=== PATIENT | female | born 1960 | race Caucasian/White ===

== ENCOUNTER 2017-06-10 10:20 | Inpatient (IN) | payer BC ==
[2017-06-10] MEDS ORDERED: ACETAMINOPHEN TAB 325 MG TAB PO STA (10:47)
--- NOTE | 2017-06-10 10:51 | ED ---
General Adult HPI - General Chief complaint: Fever Stated complaint: breast infection Time Seen by Provider: 06/10/17 10:34 Source: patient, RN notes reviewed Mode of arrival: ambulatory Limitations: no limitations - History of Present Illness Initial comments: Patient is a pleasant 57-year-old female presenting to the emergency department for left breast infection. Patient does have a history of cancer and lumpectomy. Patient has been having fevers and tenderness of the left breast. Past 4 days. Patient has been on Bactrim for 3 days however symptoms continue to worsen. Patient states discomfort is only mild. No history of similar symptoms previously. No other area of involvement. - Related Data Home Medications Medication Instructions Recorded Confirmed Atorvastatin [Lipitor] 20 mg PO HS 06/10/17 06/10/17 Calcium Carb/Vitamin D3/Vit K1 1 tab PO DAILY 06/10/17 06/10/17 [Citracal Soft Chew] Levothyroxine Sodium [Tirosint] 125 mcg PO DAILY 06/10/17 06/10/17 Multivitamins, Thera [Multivitamin 1 tab PO DAILY 06/10/17 06/10/17 (formulary)] Tamoxifen Citrate 20 mg PO DAILY 06/10/17 06/10/17 Allergies Allergy/AdvReac Type Severity Reaction Status Date / Time No Known Allergies Allergy Verified 06/10/17 11:27 Review of Systems ROS Statement: Those systems with pertinent positive or pertinent negative responses have been documented in the HPI. ROS Other: All systems not noted in ROS Statement are negative. Constitutional: Reports: fever Eyes: Denies: eye pain ENT: Denies: ear pain Respiratory: Denies: cough Cardiovascular: Denies: chest pain Endocrine: Denies: fatigue Gastrointestinal: Denies: abdominal pain Genitourinary: Denies: urgency Musculoskeletal: Denies: back pain Skin: Denies: rash Neurological: Denies: weakness Past Medical History Past Medical History: Cancer, Hyperlipidemia Additional Past Medical History / Comment(s): left sided breast cancer and thryroid cancer History of Any Multi-Drug Resistant Organisms: None Reported Past Surgical History: Breast Surgery, Section, Uterine Ablation Additional Past Surgical History / Comment(s): left sided lumpectomy and thryroidectomy 2016, open reduction of left tibula in 2013 Past Psychological History: No Psychological Hx Reported Smoking Status: Former smoker Past Alcohol Use History: Occasional Past Drug Use History: None Reported General Exam Limitations: no limitations General appearance: alert, in no apparent distress Head exam: Present: atraumatic Eye exam: Present: normal appearance Neck exam: Present: normal inspection Respiratory exam: Present: normal lung sounds bilaterally Cardiovascular Exam: Present: regular rate, normal rhythm Expanded 1 - erythema Extremities exam: Present: normal inspection Neurological exam: Present: alert Psychiatric exam: Present: normal affect, normal mood Skin exam: Present: erythema (Left entire breast with some extension to the upper chest and lateral chest wall. Mild tenderness.) Course Vital Signs 06/10/17 06/10/17 06/10/17 10:28 12:17 13:05 Temperature 99.8 F H 98.3 F 98.7 F Pulse Rate 105 H 92 90 Respiratory 16 18 19 Rate Blood Pressure 178/94 128/71 136/78 O2 Sat by Pulse 99 100 100 Oximetry - Reevaluation(s) Reevaluation #1: 06/10/17 11:32 Patient does meet sepsis criteria diagnosed at 11:32 AM. Blood cultures and lactic acid and antibiotics have been ordered. EKG Findings - EKG Comments: EKG Findings:: Normal sinus rhythm 93. [place] 122. QRS 88. QT 360. QTC 47. Right axis. Normal QRS. No acute ST change. Medical Decision Making - Medical Decision Making Patient reexamined and updated on results and plan. Case was discussed in detail with practitioner Gloria, who will admit for Dr. Ford, covering for Dr. Wang. - Lab Data Result diagrams: 06/10/17 11:09 06/10/17 11:09 Lab Results 06/10/17 06/10/17 06/10/17 Range/Units 10:45 11:09 11:09 WBC 3.1 L (3.8-10.6) k/uL RBC 4.22 (3.80-5.40) m/uL Hgb 13.6 (11.4-16.0) gm/dL Hct 38.9 (34.0-46.0) % MCV 92.2 (80.0-100.0) fL MCH 32.3 (25.0-35.0) pg MCHC 35.0 (31.0-37.0) g/dL RDW 12.2 (11.5-15.5) % Plt Count 203 (150-450) k/uL Neutrophils % (Manual) 79 % Lymphocytes % (Manual) 14 % Monocytes % (Manual) 7 % Neutrophils # (Manual) 2.45 (1.3-7.7) k/uL Lymphocytes # (Manual) 0.43 L (1.0-4.8) k/uL Monocytes # (Manual) 0.22 (0-1.0) k/uL Nucleated RBCs 0 (0-0) /100 WBC PT (9.0-12.0) sec INR (<1.2) APTT (22.0-30.0) sec Sodium 140 (137-145) mmol/L Potassium 4.3 (3.5-5.1) mmol/L Chloride 104 (98-107) mmol/L Carbon Dioxide 25 (22-30) mmol/L Anion Gap 11 mmol/L BUN 6 L (7-17) mg/dL Creatinine 0.70 (0.52-1.04) mg/dL Est GFR (MDRD) Af Amer >60 (>60 ml/min/1.73 sqM) Est GFR (MDRD) Non-Af >60 (>60 ml/min/1.73 sqM) Glucose 103 H (74-99) mg/dL Plasma Lactic Acid Jose (0.7-2.0) mmol/L Calcium 10.1 (8.4-10.2) mg/dL Total Bilirubin 0.5 (0.2-1.3) mg/dL AST 97 H (14-36) U/L ALT 113 H (9-52) U/L Alkaline Phosphatase 125 (38-126) U/L Total Protein 6.8 (6.3-8.2) g/dL Albumin 4.2 (3.5-5.0) g/dL Urine Color Colorless Urine Appearance Clear (Clear) Urine pH 6.5 (5.0-8.0) Ur Specific Lloyd 1.002 (1.001-1.035) Urine Protein Negative (Negative) Urine Glucose (UA) Negative (Negative) Urine Ketones Negative (Negative) Urine Blood Negative (Negative) Urine Nitrite Negative (Negative) Urine Bilirubin Negative (Negative) Urine Urobilinogen <2.0 (<2.0) mg/dL Ur Leukocyte Esterase Trace H (Negative) Urine WBC 1 (0-5) /hpf 06/10/17 06/10/17 Range/Units 11:09 11:09 WBC (3.8-10.6) k/uL RBC (3.80-5.40) m/uL Hgb (11.4-16.0) gm/dL Hct (34.0-46.0) % MCV (80.0-100.0) fL MCH (25.0-35.0) pg MCHC (31.0-37.0) g/dL RDW (11.5-15.5) % Plt Count (150-450) k/uL Neutrophils % (Manual) % Lymphocytes % (Manual) % Monocytes % (Manual) % Neutrophils # (Manual) (1.3-7.7) k/uL Lymphocytes # (Manual) (1.0-4.8) k/uL Monocytes # (Manual) (0-1.0) k/uL Nucleated RBCs (0-0) /100 WBC PT 9.6 (9.0-12.0) sec INR 0.9 (<1.2) APTT 23.6 (22.0-30.0) sec Sodium (137-145) mmol/L Potassium (3.5-5.1) mmol/L Chloride (98-107) mmol/L Carbon Dioxide (22-30) mmol/L Anion Gap mmol/L BUN (7-17) mg/dL Creatinine (0.52-1.04) mg/dL Est GFR (MDRD) Af Amer (>60 ml/min/1.73 sqM) Est GFR (MDRD) Non-Af (>60 ml/min/1.73 sqM) Glucose (74-99) mg/dL Plasma Lactic Acid Jose 1.5 (0.7-2.0) mmol/L Calcium (8.4-10.2) mg/dL Total Bilirubin (0.2-1.3) mg/dL AST (14-36) U/L ALT (9-52) U/L Alkaline Phosphatase (38-126) U/L Total Protein (6.3-8.2) g/dL Albumin (3.5-5.0) g/dL Urine Color Urine Appearance (Clear) Urine pH (5.0-8.0) Ur Specific Lloyd (1.001-1.035) Urine Protein (Negative) Urine Glucose (UA) (Negative) Urine Ketones (Negative) Urine Blood (Negative) Urine Nitrite (Negative) Urine Bilirubin (Negative) Urine Urobilinogen (<2.0) mg/dL Ur Leukocyte Esterase (Negative) Urine WBC (0-5) /hpf Critical Care Time Critical Care Time: Yes Total Critical Care Time: 32 Disposition Clinical Impression: Cellulitis of left breast, Sepsis Disposition: ADMITTED IP TO THIS HOSP Condition: Serious Referrals: Kathrine Sarah MD [Primary Care Provider] - 1-2 days Decision Time: 13:39
[2017-06-10] MEDS: SODIUM CHLORIDE 0.9% 500 ML IV SCH ×2 (11:05→11:46)
[2017-06-10 11:17] LABS: Appearance,Urine Clear (Clear); Bilirubin,Urine Negative (Negative); Glucose,Urine (UA) Negative (Negative); Ketones,Urine Negative (Negative); Leukocyte Esterase,Urine Trace (Negative); Nitrite,Urine Negative (Negative); PH, Urine 6.5 (5.0-8.0); Particle Count 361; Protein,Urine Negative (Negative); Specific Gravity,Urine 1.002 (1.001-1.035); UA Billing (MACRO vs. MICRO) MICRO; Urobilinogen,Urine <2.0 mg/dL (<2.0); WBC,Urine 1 /hpf (0-5)
[2017-06-10 11:24] LABS: Aty Lym Flag Slight; CH 31.9; CHCM 34.8; HCT 38.9 % (34.0-46.0); HDW 2.52; HGB 13.6 gm/dL (11.4-16.0); MCH 32.3 pg (25.0-35.0); MCV 92.2 fL (80.0-100.0); Mean Platelet Volume 6.5; RBC 4.22 m/uL (3.80-5.40); RDW 12.2 % (11.5-15.5); WBC 3.1 k/uL (3.8-10.6); WBC (Perox) 3.21
[2017-06-10 11:31] LABS: INR 0.9 (<1.2); Partial Thromboplastin Time 23.6 sec (22.0-30.0); Prothrombin Time 9.6 sec (9.0-12.0)
[2017-06-10] MEDS ORDERED: LEVOFLOXACIN 750MG-D5W PMX 750 MG in DEXTROSE/WATER 1 150ML.BAG IVPB STA (11:31)
[2017-06-10] MEDS ORDERED: IV VANCOMYCIN PER PHARMACY 1 EACH MISC MISCELLANE PRN (11:31)
[2017-06-10 11:36] LABS: ALT 113 U/L (9-52); AST 97 U/L (14-36); Alkaline Phosphatase 125 U/L (38-126); Anion Gap 11 mmol/L; Blood Urea Nitrogen 6 mg/dL (7-17); Calcium 10.1 mg/dL (8.4-10.2); Carbon Dioxide 25 mmol/L (22-30); Chloride 104 mmol/L (98-107); Glucose 103 mg/dL (74-99); Non-African American GFR(MDRD) >60 (>60 ml/min/1.73 sqM); Potassium 4.3 mmol/L (3.5-5.1); Sodium 140 mmol/L (137-145); Total Bilirubin 0.5 mg/dL (0.2-1.3); Total Protein 6.8 g/dL (6.3-8.2)
[2017-06-10] MEDS ORDERED: LEVOFLOXACIN 750MG-D5W PMX 750 MG in DEXTROSE/WATER 1 150ML.BAG IVPB SCH (11:45)
[2017-06-10 11:46] LABS: Add Differential Manual Differential
[2017-06-10 11:50] LABS: Nucleated Red Blood Cells 0 /100 WBC (0-0); Total Cells Counted 100
--- NOTE | 2017-06-10 11:52 | XR ---
EXAMINATION TYPE: XR chest 2V DATE OF EXAM: 06/10/2017 COMPARISON: None TECHNIQUE: PA and lateral views submitted. HISTORY: Fever FINDINGS: The lungs are clear and there is no pneumothorax, pleural effusion, or focal pneumonia. Postsurgica l change overlying the left axilla. Apical pleural thickening. Linear density in the right midlung la terally. Surgical change overlying the left breast. Arthropathy of the shoulders. IMPRESSION: 1. Subsegmental linear changes lateral margin right upper lobe most likely related atelectasis or sca r. Correlate clinically.
[2017-06-10] MEDS ORDERED: VANCOMYCIN 1,250 MG in SODIUM CHLORIDE 0.9% 250 ML IVPB ONE (12:30)
[2017-06-10] MEDS ORDERED: ACETAMINOPHEN TAB 325 MG TAB PO PRN (13:39)
[2017-06-10] MEDS ORDERED: NALOXONE 0.4 MG/ML 1 ML VIAL IV PRN (13:39)
[2017-06-10] MEDS: SODIUM CHLORIDE 0.9% 1,000 ML IV SCH (13:51)
[2017-06-10] MEDS: traMADol 50 MG TAB PO PRN ×2 (15:40→21:58)
[2017-06-10] MEDS: PANTOPRAZOLE 40 MG/10 ML VIAL IVP SCH (17:43)
[2017-06-10] MEDS: VANCOMYCIN 1,250 MG in SODIUM CHLORIDE 0.9% 250 ML IVPB SCH (21:57)
[2017-06-11] MEDS: SODIUM CHLORIDE 0.9% 1,000 ML IV SCH ×2 (00:19→03:59)
[2017-06-11] MEDS: traMADol 50 MG TAB PO PRN ×4 (03:54→22:44)
[2017-06-11] MEDS: VANCOMYCIN 1,250 MG in SODIUM CHLORIDE 0.9% 250 ML IVPB SCH (05:37)
[2017-06-11 05:52] LABS: Anion Gap 4 mmol/L; Blood Urea Nitrogen 5 mg/dL (7-17); Calcium 8.6 mg/dL (8.4-10.2); Carbon Dioxide 25 mmol/L (22-30); Chloride 107 mmol/L (98-107); Glucose 88 mg/dL (74-99); Non-African American GFR(MDRD) >60 (>60 ml/min/1.73 sqM); Potassium 3.8 mmol/L (3.5-5.1); Sodium 136 mmol/L (137-145)
[2017-06-11 05:56] LABS: Aty Lym Flag Slight; CH 32.8; CHCM 34.9; HCT 33.1 % (34.0-46.0); HGB 11.2 gm/dL (11.4-16.0); MCV 94.4 fL (80.0-100.0); RBC 3.51 m/uL (3.80-5.40); RDW 13.1 % (11.5-15.5); WBC 3.2 k/uL (3.8-10.6); WBC (Perox) 3.32
[2017-06-11 06:33] LABS: Add Differential Manual Differential
[2017-06-11 06:35] LABS: Manual Review Performed; Nucleated Red Blood Cells 0 /100 WBC (0-0); Total Cells Counted 100
[2017-06-11] MEDS: TAMOXIFEN 10 MG TAB PO SCH (08:30)
[2017-06-11] MEDS: CALCIUM CARB-VIT D 500MG-200UN 1 EACH TAB PO SCH (08:30)
[2017-06-11] MEDS: PANTOPRAZOLE 40 MG/10 ML VIAL IVP SCH (08:31)
--- NOTE | 2017-06-11 11:27 | USB ---
EXAMINATION TYPE: US breast complete LT DATE OF EXAM: 06/11/2017 COMPARISON: Left breast ultrasound October 15, 2015 CLINICAL HISTORY: abscess. Diagnosed left breast cancer October 2015 with with new redness over chest including left breast Technique: Whole left breast ultrasound including evaluation of subareolar and axillary region is per formed. Findings: Subcutaneous edema is present throughout best seen at 7 and 8:00 position and subareolar re gion. No well-formed fluid collection or abscess is present. IMPRESSION: As above BI-RADS 2 benign findings. Recommendation: Manage clinically. Return to routine follow-up.
[2017-06-11] MEDS: ceFAZolin 2 GM in SODIUM CHLORIDE 0.9% 100 ML IVPB SCH ×2 (11:40→16:55)
[2017-06-11] MEDS: MULTIVITAMINS, THERA 1 EACH TAB PO SCH (11:41)
[2017-06-11] MEDS ORDERED: LEVOFLOXACIN 750MG-D5W PMX 750 MG in DEXTROSE/WATER 1 150ML.BAG IVPB SCH (12:00)
[2017-06-11 12:02] LABS: Bilirubin, Delta 0.1 mg/dL (0.0-0.2); Total Bilirubin 0.3 mg/dL (0.2-1.3); Total Protein 5.1 g/dL (6.3-8.2)
[2017-06-11] MEDS ORDERED: HYDROcodone/APAP 5-325MG 1 EACH TAB PO PRN (14:51)
[2017-06-11] MEDS ORDERED: ALPRAZolam 0.25 MG TAB PO PRN (14:51)
[2017-06-11] MEDS ORDERED: TEMAZEPAM 15 MG CAP PO PRN (14:51)
[2017-06-11] MEDS: HEPARIN SODIUM,PORCINE 5,000 UNIT/ML 1 ML VIAL SQ SCH (20:04)
--- NOTE | 2017-06-11 21:22 | PN ---
PROGRESS NOTE DATE OF SERVICE: 06/11/2017 To Whom it May Concern: This 57-year-old woman was admitted with left breast cellulitis and probably abscess. The patient is on IV antibiotics. The patient needs to be hospitalized for continued management of this acute medical/surgical issue. Please contact me for any further information. Please refer to the ER notes and History and Physical and other notes for further information. MMODL / IJN: [id number] /
--- NOTE | 2017-06-11 22:31 | HP ---
HISTORY AND PHYSICAL DATE OF ADMISSION: 06/10/17 CHIEF COMPLAINT: Left-sided breast infection. HISTORY OF PRESENT ILLNESS: This 57-year-old woman with a past medical history of multiple medical problems, including history of breast cancer with lumpectomy and radiation at [facility], thyroid cancer with thyroidectomy, history hyperlipidemia being followed by Dr. Sarah in the outpatient setting is complaining of left sided breast redness which the patient noted after a playing a day of golf. The patient is taking outpatient Bactrim. Because of lack of improvement the patient came to [facility] and was admitted to the hospital further evaluation and treatment. There is no history of any fever, rigors or chills. No seizures have been reported. No history of discharge per nipple. Infectious disease evaluation in progress. The patient started on broad-spectrum IV antibiotics. PAST MEDICAL HISTORY: History of breast cancer. History of lumpectomy, hyperlipidemia, history radiation, history of breast surgery. MEDICATIONS: Prior to admission: 1. Citracal 1 p.o. daily. 2. Tamoxifen 25 mg p.o. daily. 4. Levothyroxine 25 mcg. 5. Lipitor 10 mg q.h.s. ALLERGIES: None. FAMILY HISTORY: History of cancer in the family. SOCIAL HISTORY: Previous history of smoker. Occasional alcohol intake. REVIEW OF SYSTEMS: EENT no diminished vision. No diminished hearing. Cardio system: No angina or palpitations. Respiratory system: No cough, hemoptysis. GI: No nausea, vomiting. : No dysuria. Neuro system: No numbness weakness. Allergy/Immunology: No asthma or hayfever. Musculoskeletal System: As mentioned earlier. Hematology-Oncology: As mentioned earlier. Endocrine: No history of diabetes, hypothyroidism. Constitutional: As mentioned earlier. Dermatology: As mentioned earlier. Rheumatology: Negative. Psychiatry: Negative. PHYSICAL EXAMINATION: The patient is alert and oriented times three. Pulse is 70, blood pressure 124/ 73, respirations 16, temperature 98.2, pulse ox 98% on room air. HEENT: Conjunctivae normal. Oral mucosa moist. Neck is no JVD. No carotid bruit. No lymph node enlargement. No carotid bruit. No thyroid enlargement. Cardiovascular system : S1, S2 normal. No S3, no S4. Respiratory: Breath sounds are diminished at the bases. No rhonchi and no crackles. No bronchial breath sounds. ABDOMEN: Soft, nontender. No hepatosplenomegaly. LEGS: no edema. No swelling. Nervous system: Higher functions as mentioned earlier. Cranial nerves 2 thru 12 grossly intact. Moves all four limbs. No focal motor deficit. Lymphatic: No lymph nodes palpable in the neck, axillae or groin. SKIN: Normal except the skin over the left side of the chest, otherwise no active deforming arthropathy. Examination of the breast on palpation minimal tenderness and induration otherwise no definite masses palpated. Significant diffuse redness which is marked on the left chest also present. LAB: Investigations are WBC ntd_, hemoglobin 11.2, sodium 136. ASSESSMENT: 1. Acute left breast cellulitis with pain and fever. 2. Mild leukopenia. 3. Anemia normocytic. 4. Increased AST/ALT of mild hepatitis of undetermined significance. 5. History of breast cancer, lumpectomy, radiation. 6. Hyperlipidemia. 7. Hypothyroidism. 8. History of thyroid cancer and thyroidectomy. 9. Remote history of nicotine dependence. RECOMMENDATIONS AND DISCUSSION: In this 57-year-old woman presenting with multiple complex medical issues, at this time, monitor patient closely. Continue current medications, continue symptomatic treatment, antibiotics have been changed to cefazolin. We will follow the patient closely. Infectious Disease. Symptomatic treatment will be provided. Resume the home medications. Repeat labs. DVT prophylaxis. Guarded prognosis because of multiple complex medical issues. Further recommendations to follow. A copy of dictation being forwarded to Dr. Sarah who is the primary care physician. MMPAULAL / JAMESN: [id number] / MTDD
[2017-06-12] MEDS: ceFAZolin 2 GM in SODIUM CHLORIDE 0.9% 100 ML IVPB SCH ×3 (00:22→15:22)
[2017-06-12] MEDS: SODIUM CHLORIDE 0.9% 1,000 ML IV SCH ×2 (05:01→05:53)
--- NOTE | 2017-06-12 05:25 | CONS ---
CONSULTATION DATE OF SERVICE: 06/11/2017 REASON FOR CONSULTATION: Left breast cellulitis. HISTORY OF PRESENT ILLNESS: The patient is a 57-year-old female with past medical history significant for left breast cancer. The patient is status post lumpectomy and chemotherapy and as well as radiation and she finished in February of 2016; currently on oral tamoxifen. The patient says she was doing well. However over the weekend, she did have golf and may have played harder. The next morning, noticed to have some erythema around the breast area that has gradually progressed within 48 hours. The patient did went to the urgent care where the patient was evaluated by the physician and has been started on oral Bactrim DS. Patient did take about 4 doses of Bactrim and did not have significant improvement and breast area became more swollen, red and painful. The pain describing it to be sharp 5 to 6 out of 10 and no radiation. There is no skin breakdown. There is no drainage. The patient did have some chills and on arrival to the ER the patient had a low-grade fever of 99.8. The patient's white count was 3.1. She has been diagnosed with cellulitis where the patient was started on vancomycin and Levaquin and ID was consulted for further recommendation regarding antibiotic therapy. REVIEW OF SYSTEMS: CONSTITUTIONAL: Positive for weakness and chills. EYES: No complaint. ENT: No complaint. RESPIRATORY: No complaint. CARDIOVASCULAR: No complaint. GENITOURINARY: No complaint. GASTROINTESTINAL: No complaint. MUSCULOSKELETAL: No complaint. INTEGUMENTARY: As per HPI. PSYCHOLOGICAL: No complaint. ENDOCRINE: No complaint. NEUROLOGICAL: No complaint. PAST MEDICAL HISTORY: Left breast cancer, thyroid cancer, hyperlipidemia. PAST SURGICAL HISTORY: Left breast lumpectomy, , uterine ablation, thyroidectomy. SOCIAL HISTORY: Remote history of smoking. No drinking or drug use. 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 ALLERGIES: No known drug allergies. FAMILY HISTORY: No pertinent findings noticed. MEDICATIONS: Medications include the patient is currently on Tylenol, [place], Xanax, Os-Jony with D, heparin, Theragran, Narcan, Protonix, Tamoxifen, Levaquin and vancomycin pharmacy to dose. PHYSICAL EXAMINATION: On examination, blood pressure 124/73 with a pulse of 70, temperature 98.1. She is 98% on room air. General description is a middle aged female up in the bed in no distress. No tachypnea or accessory muscles of respiration use. HEENT EXAMINATION: No pallor or scleral icterus. Oral mucous membrane is dry. NECK: Trachea central. No thyromegaly. LUNGS: Unlabored breathing. Clear to auscultation anteriorly. No wheeze or crackle. HEART: S1, S2. Regular rate and rhythm. ABDOMEN: Soft, no tenderness. No guarding or rigidity. EXTREMITIES: No edema of feet. SKIN EXAMINATION: No rash or mass palpable. Examination of the left breast reveals with extensive redness which is diffuse in nature, warm to touch. There was no evidence of any induration or fluctuation on the breast to palpation. No drainage. NEUROLOGICAL: The patient is awake, alert, oriented x3. Mood and affect normal. LABS: Hemoglobin 11.2, white count of 3.2. BUN of 5 and creatinine 0.80. Urine has been negative. Blood culture obtained and currently pending. DIAGNOSTIC IMPRESSION: Patient with acute left breast cellulitis with a previous history of breast cancer in the same region, status post lumpectomy, radiation and chemotherapy. Patient with diffuse swelling and redness more likely a streptococcal cellulitis, clinically doubt methicillin-resistant Staphylococcus aureus infection or a gram-negative infection. PLAN: 1. We will obtain ultrasound of the breast to make sure there is no evidence of any abscess that may need to be drained. 2. We will discontinue Levaquin and vancomycin. 3. We will start the patient on cefazolin 2 grams q.8 hour as the patient did have overall improvement on cefazolin, for oral Keflex for the outpatient. This has been discussed in detail with the patient and agree with the plan. MMODL / IJN: [id number] /
[2017-06-12] MEDS: traMADol 50 MG TAB PO PRN ×3 (05:50→19:30)
[2017-06-12 06:54] LABS: Aty Lym Flag Slight; CH 31.3; CHCM 33.5; HCT 34.4 % (34.0-46.0); HGB 11.8 gm/dL (11.4-16.0); MCH 32.1 pg (25.0-35.0); MCHC 34.3 g/dL (31.0-37.0); MCV 93.7 fL (80.0-100.0); Mean Platelet Volume 6.7; RBC 3.67 m/uL (3.80-5.40); RDW 12.3 % (11.5-15.5); WBC 3.4 k/uL (3.8-10.6); WBC (Perox) 3.46
[2017-06-12 07:07] LABS: ALT 133 U/L (9-52); AST 129 U/L (14-36); Alkaline Phosphatase 77 U/L (38-126); Anion Gap 6 mmol/L; Blood Urea Nitrogen 6 mg/dL (7-17); Calcium 9.2 mg/dL (8.4-10.2); Carbon Dioxide 30 mmol/L (22-30); Chloride 103 mmol/L (98-107); Glucose 88 mg/dL (74-99); Non-African American GFR(MDRD) >60 (>60 ml/min/1.73 sqM); Sodium 139 mmol/L (137-145); Total Bilirubin 0.4 mg/dL (0.2-1.3); Total Protein 5.6 g/dL (6.3-8.2)
[2017-06-12 08:29] LABS: Add Differential Manual Differential
[2017-06-12 08:31] LABS: Nucleated Red Blood Cells 0 /100 WBC (0-0); Polychromasia Present; Total Cells Counted 100
[2017-06-12] MEDS: PANTOPRAZOLE 40 MG TABLET PO SCH (08:46)
[2017-06-12] MEDS: CALCIUM CARB-VIT D 500MG-200UN 1 EACH TAB PO SCH (08:46)
[2017-06-12] MEDS: TAMOXIFEN 10 MG TAB PO SCH (08:46)
[2017-06-12] MEDS: HEPARIN SODIUM,PORCINE 5,000 UNIT/ML 1 ML VIAL SQ SCH ×2 (08:46→20:22)
[2017-06-12] MEDS: MULTIVITAMINS, THERA 1 EACH TAB PO SCH (11:32)
[2017-06-12] MEDS ORDERED: MINERAL OIL-WHITE PETROLATUM 120 GM JAR TOPICAL PRN (11:35)
[2017-06-12 13:09] LABS: Hepatitis B Surface Ag Index 0.04
[2017-06-12 13:15] LABS: Hepatitis B Core IgM Index 0.01
[2017-06-12 13:27] LABS: Hepatitis C Virus IgG Ab Negative (Negative); Hepatitis C Virus IgG Index 0.01
[2017-06-12] MEDS: CLINDAMYCIN 600 MG in DEXTROSE 5% IN WATER 50 ML IVPB SCH ×2 (16:16)
[2017-06-12] MEDS: IBUPROFEN 200 MG TAB PO PRN (16:16)
--- NOTE | 2017-06-12 21:53 | PN ---
PROGRESS NOTE DATE OF SERVICE: 06/12/2017. REASON FOR FOLLOW UP: The left breast and chest wall cellulitis. INTERVAL HISTORY: The patient is afebrile. Overall pain swelling and discomfort to left breast area has slightly improved. She is now complaining of some itching in some of the areas. There is no drainage. Denies chest pain, shortness of breath. Cough, no abdominal pain or any diarrhea. EXAMINATION: Blood pressure 132/79, pulse of 76, temperature 98.6, she is 96% on room air. General description is a middle aged female up in the bed in no distress. Respiratory system unlabored breathing. Clear to auscultation. Heart is S1, S2. Regular rate and rhythm. Abdomen soft. No tenderness. Left breast has a chest wall erythema has decreased. No fluctuation or induration. LABS: Hemoglobin 11.9, white is 3.4, BUN of 6, creatinine 0.73. Liver enzymes slightly elevated. Blood cultures remain to be negative. Ultrasound was negative for any abscess. IMPRESSION: Patient with left breast and chest wall cellulitis with no evidence of any abscess with diffuse swelling and redness likely streptococcal disease with . PLAN: 1. I would benefit for another 24 hours. If the patient continues to improve, hopefully she will finish therapy with oral Keflex. 2. Patient with elevated liver enzymes. The patient did have previous history of liver hemangiomas. We will go ahead and check a liver ultrasound. In addition, to the hepatitis panel. MMODL / IJN: [id number] /
[2017-06-13] MEDS: IBUPROFEN 200 MG TAB PO PRN (00:56)
[2017-06-13] MEDS: CLINDAMYCIN 600 MG in DEXTROSE 5% IN WATER 50 ML IVPB SCH ×6 (00:56→16:39)
[2017-06-13] MEDS: ceFAZolin 2 GM in SODIUM CHLORIDE 0.9% 100 ML IVPB SCH ×3 (00:56→17:45)
[2017-06-13 07:17] LABS: Basophils % (A) 0 %; CH 32.7; CHCM 35.1; Eosinophils # (A) 0.1 k/uL (0-0.7); Eosinophils % (A) 4 %; HCT 34.9 % (34.0-46.0); HDW 2.58; HGB 11.8 gm/dL (11.4-16.0); Luc # (Auto) 0.11; Luc % (Auto) 3; Lymphocytes # (A) 1.1 k/uL (1.0-4.8); Lymphocytes % (A) 32 %; MCH 31.5 pg (25.0-35.0); MCHC 33.7 g/dL (31.0-37.0); MCV 93.6 fL (80.0-100.0); Mean Platelet Volume 7.2; Monocytes # (A) 0.3 k/uL (0-1.0); Monocytes % (A) 9 %; Neutrophils # (A) 1.8 k/uL (1.3-7.7); Neutrophils % (A) 52 %; RBC 3.73 m/uL (3.80-5.40); RDW 12.8 % (11.5-15.5); WBC 3.4 k/uL (3.8-10.6); WBC (Perox) 3.58
[2017-06-13 07:27] LABS: ALT 101 U/L (9-52); AST 82 U/L (14-36); Alkaline Phosphatase 72 U/L (38-126); Anion Gap 7 mmol/L; Blood Urea Nitrogen 8 mg/dL (7-17); Calcium 9.1 mg/dL (8.4-10.2); Carbon Dioxide 28 mmol/L (22-30); Chloride 105 mmol/L (98-107); Glucose 93 mg/dL (74-99); Non-African American GFR(MDRD) >60 (>60 ml/min/1.73 sqM); Potassium 4.1 mmol/L (3.5-5.1); Sodium 140 mmol/L (137-145); Total Bilirubin 0.4 mg/dL (0.2-1.3); Total Protein 5.6 g/dL (6.3-8.2)
[2017-06-13] MEDS: PANTOPRAZOLE 40 MG TABLET PO SCH (08:04)
[2017-06-13] MEDS: HEPARIN SODIUM,PORCINE 5,000 UNIT/ML 1 ML VIAL SQ SCH ×2 (08:04→22:40)
[2017-06-13] MEDS: CALCIUM CARB-VIT D 500MG-200UN 1 EACH TAB PO SCH (08:04)
[2017-06-13] MEDS: TAMOXIFEN 10 MG TAB PO SCH (08:06)
--- NOTE | 2017-06-13 08:34 | US ---
EXAMINATION TYPE: US abdomen limited DATE OF EXAM: 06/13/2017 COMPARISON: NONE CLINICAL HISTORY: elevated liver enzyme. hx of 3 hemangiomas per pt she said she had US done at [facility] showing the hemangiomas about 6 months ago. EXAM MEASUREMENTS: Liver Length: 15.0 cm Gallbladder Wall: 0.3 cm CBD: 0.3 cm Right Kidney: 9.8 x 4.6 x 4.8 cm Limited due to overlying bowel gas. Pancreas: wnl Liver: 3 heterogeneous hyperechoic lesions noted: one in superior right lobe measuring 3.9 x 4.2 x 3 .6 cm; one in posterior right lobe measuring 3.3 x 3.3 x 3.0 cm; and one in the right lobe lateral to the gallbladder measuring 3.9 x 2.5 x 3.8 cm Gallbladder: 2 nonshadowing nonmobile echogenic focus' in the body of the gallbladder ?polyp versus sones Evidence for sonographic Cohen's sign: No CBD: wnl Right Kidney: wnl IMPRESSION: Nonspecific 3 heterogeneous hyperechoic solid lesions are identified favoring hemangiomas however this should be confirmed with multi phase contrast-enhanced liver protocol CT or MRI if has not been performed at outside institution.
[2017-06-13] MEDS: traMADol 50 MG TAB PO PRN ×3 (10:41→22:41)
[2017-06-13] MEDS: MULTIVITAMINS, THERA 1 EACH TAB PO SCH (12:03)
--- NOTE | 2017-06-13 12:03 | PN ---
PROGRESS NOTE DATE OF SERVICE: 06/12/2017 INTERVAL HISTORY: This 57-year-old woman with acute cellulitis of the left breast area has been on IV antibiotics. No chest pain. No palpitations. No fever. LFTs are slightly elevated. PHYSICAL EXAMINATION: On exam alert and oriented times three. Pulse 76. Bp 130/79. Respiratory rate 18. Temperature 98.6. Pulse ox 96% on room air. HEENT: Conjunctivae normal. NECK: No jugular venous distention. CARDIOVASCULAR: S1, S2. RESPIRATORY: Breath sounds diminished at the bases. No rhonchi. No crackles. ABDOMEN: Soft, nontender. LEGS: No edema. No swelling. CENTRAL NERVOUS SYSTEM: No focal deficits Examination of the left breast area erythematous areas present, less intensely red, improving slightly. LAB INVESTIGATION:: WBC 3.4, hemoglobin 11.8, LFTs AST 129, ALT is 139. ASSESSMENT: 1. Acute left breast cellulitis with pain and fever with no evidence of abscess. 2. Leukopenia. 3. Anemia, normocytic. 4. Increased AST ALT with mild hepatitis of undetermined significance. 5. History of breast cancer, on chemo and radiation. 6. Hyperlipidemia. 7. Hypothyroidism. 8. History of thyroid cancer and thyroidectomy. 9. Remote history of nicotine dependence. RECOMMENDATIONS AND DISCUSSION: Continue current medications. Continue symptomatic treatment. Continue with IV antibiotics. Otherwise closely follow with infectious disease and Dr. Mott. Cultures are negative so far. Further recommendations to follow. MMODL / IJN: [id number] /
[2017-06-13] MEDS: SODIUM CHLORIDE 0.9% 1,000 ML IV SCH (18:11)
[2017-06-13 23:29] VITALS: RESP 16; TEMP 98.2
[2017-06-14] MEDS: CLINDAMYCIN 600 MG in DEXTROSE 5% IN WATER 50 ML IVPB SCH ×4 (00:01→08:19)
[2017-06-14] MEDS: ceFAZolin 2 GM in SODIUM CHLORIDE 0.9% 100 ML IVPB SCH ×2 (02:23→09:01)
[2017-06-14 07:13] LABS: Basophils % (A) 0 %; CH 31.5; Eosinophils # (A) 0.1 k/uL (0-0.7); Eosinophils % (A) 3 %; HCT 34.8 % (34.0-46.0); HDW 2.59; HGB 11.9 gm/dL (11.4-16.0); Luc # (Auto) 0.14; Luc % (Auto) 3; Lymphocytes # (A) 1.1 k/uL (1.0-4.8); Lymphocytes % (A) 26 %; MCH 31.7 pg (25.0-35.0); MCHC 34.1 g/dL (31.0-37.0); MCV 92.9 fL (80.0-100.0); Mean Platelet Volume 6.6; Monocytes # (A) 0.3 k/uL (0-1.0); Monocytes % (A) 7 %; Neutrophils # (A) 2.5 k/uL (1.3-7.7); Neutrophils % (A) 60 %; RBC 3.75 m/uL (3.80-5.40); RDW 12.1 % (11.5-15.5); WBC 4.2 k/uL (3.8-10.6); WBC (Perox) 4.48
[2017-06-14 07:26] LABS: ALT 95 U/L (9-52); AST 85 U/L (14-36); Alkaline Phosphatase 71 U/L (38-126); Anion Gap 6 mmol/L; Blood Urea Nitrogen 6 mg/dL (7-17); Calcium 9.1 mg/dL (8.4-10.2); Carbon Dioxide 28 mmol/L (22-30); Chloride 104 mmol/L (98-107); Glucose 87 mg/dL (74-99); Non-African American GFR(MDRD) >60 (>60 ml/min/1.73 sqM); Potassium 4.2 mmol/L (3.5-5.1); Sodium 138 mmol/L (137-145); Total Bilirubin 0.4 mg/dL (0.2-1.3); Total Protein 5.6 g/dL (6.3-8.2)
[2017-06-14 07:53] VITALS: BP 121/68; PULSE 66
--- NOTE | 2017-06-14 08:04 | PN ---
PROGRESS NOTE DATE OF SERVICE: 06/13/17 INTERVAL HISTORY: This 57 -year-old woman was admitted with acute cellulitis of the left breast area, is improving significantly. Patient is on IV antibiotics. Abdominal ultrasound showed 3 lesions which are most likely hemangiomas which have been followed for the last several years when stable per the patient. No chest pain. No palpitations. No fever. EXAM: Alert and oriented times three. Pulse is 81, blood pressure 120/63. Respiration 18, Temperature 98.1, pulse ox 94% on room air. HEENT: Conjunctivae normal. Neck no jugular venous distention. Cardiovascular: S1, S2 muffled. Respiratory: Breath sounds diminished at the bases. Scattered rhonchi and crackles. ABDOMEN: Soft, nontender. Legs no edema. No swelling. Central nervous system: No focal deficits. Examination of the left breast erythema present which is much less and improved. LABORATORY DATA: WBC 3.5, hemoglobin 11.8, and AST is 82 and ALT is 101. Hepatitis panel is negative. ASSESSMENT: 1. Acute left breast cellulitis with pain and fever with no evidence of abscess. 2. Leukopenia. 3. Anemia normocytic. 4. Increased AST ALT with mild hepatitis of undetermined significance. Improving. 5. Possible liver hemangiomas. 6. History of breast cancer on chemo status post chemo and radiation. 7. Hyperlipidemia. 8. Hypothyroidism. 9. History of thyroid cancer. Thyroidectomy. 10.Remote history of nicotine dependence. RECOMMENDATIONS AND DISCUSSION: Recommend to continue current medications, continue symptomatic treatment. Otherwise at this time, I recommend continue IV antibiotics. Follow the cultures. Follow the LFTs and further recommendations to follow. MMODL / IJN: [id number] /
[2017-06-14] MEDS: TAMOXIFEN 10 MG TAB PO SCH (08:19)
[2017-06-14] MEDS: HEPARIN SODIUM,PORCINE 5,000 UNIT/ML 1 ML VIAL SQ SCH (08:19)
[2017-06-14] MEDS: CALCIUM CARB-VIT D 500MG-200UN 1 EACH TAB PO SCH (08:19)
[2017-06-14] MEDS: PANTOPRAZOLE 40 MG TABLET PO SCH (08:20)
[2017-06-14] MEDS: traMADol 50 MG TAB PO PRN (11:03)
--- NOTE | 2017-06-14 12:31 | PN ---
PROGRESS NOTE DATE OF SERVICE: 06/13/2017 REASON FOR FOLLOW UP: Left breast cellulitis. INTERVAL HISTORY: The patient is afebrile. The left breast swelling and redness have improved. The patient denies chest pain, shortness of breath or cough. No abdominal pain or diarrhea. On examination, blood pressure 130/80 with a pulse of 75, temperature 98.8. She is 97% on room air. General description is a middle-aged female up in the bed in no distress. The left chest wall area of redness is decreased in intensity. Breast examination did not show any induration or fluctuation or any drainage. LAB: Hemoglobin 11.8, white count 3.4 with a BUN of 8, creatinine 0.71. Blood culture has been negative. DIAGNOSTIC IMPRESSION AND PLAN: 1. Patient with a left breast cellulitis likely streptococcal with overall improvement on cefazolin and Clindamycin with plan to finish therapy with p.o. Keflex 500 mg t.i.d. for another 10 days. 2. The patient's elevated liver enzymes could be related to underlying hemangiomas which are known to the patient from before and may benefit from an outpatient CT. MMODL / IJN: [id number] /
--- NOTE | 2017-06-14 19:34 | PN ---
PROGRESS NOTE DATE OF SERVICE: 06/14/2017 REASON FOR FOLLOW UP: Left breast cellulitis. INTERVAL HISTORY: The patient is afebrile. She was seen this afternoon. The patient has been feeling better, breathing comfortably. Denies chest pain, shortness of breath or cough. The left chest wall swelling and redness is improved. No abdominal pain and no diarrhea with antibiotic therapy. EXAMINATION: Blood pressure is 121/68, pulse 66, temperature 98.2, she is 96% on room air. GENERAL DESCRIPTION: A middle-aged female up in the bed in no distress. RESPIRATORY SYSTEM: Unlabored breathing. Clear to auscultation anteriorly. HEART: S1, S2. Regular. Chest wall swelling is much improved. No swelling, redness or induration of the breast was noticed. LAB: Hemoglobin 11.1, white count 4.2, BUN of 15 and 0.9. DIAGNOSTIC IMPRESSION AND PLAN: Patient with left chest wall and breast cellulitis. The patient has shown overall clinical improvement. She will finish therapy with oral Keflex 500 mg q.6 hours for 10 days with outpatient follow up. MMODL / IJN: [id number] /
--- NOTE | 2017-06-15 00:35 | P.DS ---
Providers Date of admission: 06/10/17 13:40 Attending physician: Trey Ford Consults: 06/10/17 15:05 Consult Physician Routine Consulting Provider: Johnnie Mott Consult Reason/Comments: wound care/antibx Do you want consulting provider notified?: Yes Primary care physician: Kathrine Sarah [facility] Course: This 57-year-old woman was admitted with acute left breast cellulitis with the pain and fever. Patient was treated with IV antibiotics. There is no evidence abscess. Patient improved significantly. Dr. mott from infectious disease saw the patient during the hospitalization. Patient improved significantly. On exam vitals stable. Cardio S1 and S2 normal. Abdomen soft nontender. Respirator system.". Examination of the breasts skin minimal erythema. Much improved. Patient be discharged in a stable pressure the guarded prognosis with further plans to follow up with Dr. Sarah and as well as Dr. Mott in the outpatient setting. Assessment 1. Acute left breast cellulitis with pain and fever with no evidence abscess. 2. Leukopenia 3. Anemia normocytic 4. Increased AST ALT with mild hepatitis of undetermined significance improving 5. Possible liver hemangiomas 6. History of breast cancer status post lumpectomy 7. Hyperlipidemia 8. Hypothyroidism 9. History of thyroid cancer status post thyroidectomy 10. Remote stent, dependence Patient Condition at Discharge: Serious Plan - Discharge Summary New Discharge Prescriptions: New Cephalexin [Keflex] 500 mg PO Q6HR #42 cap Ibuprofen [Advil] 200 mg PO Q6HR PRN tab PRN Reason: Pain Continue Tamoxifen Citrate 20 mg PO DAILY Multivitamins, Thera [Multivitamin (formulary)] 1 tab PO DAILY Levothyroxine Sodium [Tirosint] 125 mcg PO DAILY Atorvastatin [Lipitor] 20 mg PO HS Calcium Carb/Vitamin D3/Vit K1 [Citracal Soft Chew] 1 tab PO DAILY Discharge Medication List Atorvastatin [Lipitor] 20 mg PO HS 06/10/17 [History] Calcium Carb/Vitamin D3/Vit K1 [Citracal Soft Chew] 1 tab PO DAILY 06/10/17 [ History] Levothyroxine Sodium [Tirosint] 125 mcg PO DAILY 06/10/17 [History] Multivitamins, Thera [Multivitamin (formulary)] 1 tab PO DAILY 06/10/17 [History ] Tamoxifen Citrate 20 mg PO DAILY 08/31/17 [History] Cephalexin [Keflex] 500 mg PO Q6HR #42 cap 06/14/17 [Rx] Ibuprofen [Advil] 200 mg PO Q6HR PRN tab 06/14/17 [Rx] Follow up Appointment(s)/Referral(s): Kathrine Sarah MD [Primary Care Provider] - 1-2 days Johnnie Mott MD [STAFF PHYSICIAN] - 1 Week Ambulatory/Diagnostic Orders: Complete Blood Count w/diff [LAB.AMB] Location: Determined By Patient Patient Instructions/Handouts: Cephalexin (By mouth), Cellulitis (DC), Sepsis ( GEN) Activity/Diet/Wound Care/Special Instructions: diet reg act as tolerated Discharge Disposition: HOME SELF-CARE
== END 2017-06-14 13:22 | disposition home or self-care (01) | DRG 600 ==
LOC: EC 10:20 → 5ONC 13:40
PROVIDERS: ADMIT Hospitalist; ATTEND Hospitalist
DX: N61.0 Mastitis without abscess (principal); L03.313 Cellulitis of chest wall; K75.9 Inflammatory liver disease, unspecified; E89.0 Postprocedural hypothyroidism; E78.5 Hyperlipidemia, unspecified; D64.9 Anemia, unspecified; D72.819 Decreased white blood cell count, unspecified; Z79.899 Other long term (current) drug therapy; Z85.3 Personal history of malignant neoplasm of breast; Z85.850 Personal history of malignant neoplasm of thyroid; Z87.891 Personal history of nicotine dependence; Z92.21 Personal history of antineoplastic chemotherapy; Z92.3 Personal history of irradiation
CPT/HCPCS: 36415; 71020; 76705; 80048; 80053; 80074; 80076; 81001; 83605; 85025; 85610; 85730; 87040; 87086; 93005; 94760; 96361; 96365; 96374; 99285

== ENCOUNTER → 2019-06-20 | Outpatient (CLI) | payer BC ==
--- NOTE | 2019-06-20 14:04 | BD ---
EXAMINATION TYPE: Axial Bone Density DATE OF EXAM: 06/20/2019 COMPARISON: No priors at this institution CLINICAL HISTORY: Postmenopausal female. History of breast cancer. Osteoporosis screening. Height: 5FT 6 IN Weight: 145 FRAX RISK QUESTIONS: History of Fracture in Adulthood: YES Secondary Osteoporosis: RISK FACTORS HISTORY OF: Active: YES Postmenopausal woman: AGE 55 MEDICATIONS: Thyroid Medications: YES Which medication: TIROSENT How Long: SINCE 2015 Additional Medications: TIROSENT, TAMOXIFEN, ATORVASTATIN Additional History: THYROID CANCER 2016 RADIATION/ BREAST CANCER 2016 LUMPECTOMY WITH RADIATION EXAM MEASUREMENTS: Bone mineral densitometry was performed using the [employer] System. Bone mineral density as measured about the Lumbar spine is: ----- L1-L4(G/cm2): 1.343 T Score Values are as follows: ----- L2: 0.9 ----- L3: 1.1 ----- L4: 2.3 ----- L1-L4: 1.4 PREV RDH Bone mineral density about the R hip (g/cm2): 1.002 Bone mineral density about the L hip (g/cm2): 1.061 T Score values are as follows: -----R Neck: -0.3 -----L Neck: -0.2 -----R Total: 0.6 -----L Total: 0.5 PREV RDH IMPRESSION: Normal (Values between +1 and -1 indicate normal bone mass). Consider repeating this study in 5 year s or sooner if there is some new clinical indication. NOTE: T-SCORE=SD OF THE YOUNG ADULT MEAN.
== END | disposition home or self-care (01) ==
LOC: RADBDWWP 12:49
PROVIDERS: ATTEND Internal Medicine Hematology & Oncology
DX: C50.812 Malignant neoplasm of overlapping sites of left female breast (principal); Z79.890 Hormone replacement therapy
CPT/HCPCS: 77080

== ENCOUNTER → 2020-08-08 | Outpatient (CLI) | payer BC | END | disposition home or self-care (01) | LOC: LABWHC1 09:07 | PROVIDERS: ATTEND Internal Medicine Endocrinology, Diabetes & Metabolism | DX: C73 Malignant neoplasm of thyroid gland (principal) | CPT/HCPCS: 36415; 84432; 84443; 86800 ==

== ENCOUNTER → 2021-03-18 | Outpatient (CLI) | payer BC ==
--- NOTE | 2021-03-18 12:50 | US ---
EXAMINATION TYPE: US thyroid st tissue head/neck DATE OF EXAM: 03/18/2021 COMPARISON: NONE, Patient states previous ultrasounds were done at [facility]. CLINICAL HISTORY: C73. Malignant neoplasm of thyroid gland. History of thyroid cancer. Total thyroide ctomy done. Ultrasounds done yearly since, per pt. GLAND SIZE: Right Lobe: Surgically absent cm Overall Parenchyma: Left Lobe: Surgically absent cm Overall Parenchyma: Isthmus Thickness: Surgically absent cm NODULES RIGHT: # of nodules measured on right: 0 LEFT: # of nodules measured on left: 0 ISTHMUS: # of nodules measured in the isthmus: 0 Bilateral neck scanned, no evidence of lymphadenopathy. ? thyroid tissue on right side = 1.0 x 0.4 x 0.5 cm IMPRESSION: 2017 ACR TI-RADS LEVEL: *Highest TI-RADS level nodule reported EXAMINATION TYPE: US thyroid st tissue head/neck DATE OF EXAM: 03/18/2021 COMPARISON: NONE CLINICAL HISTORY: C73. Malignant neoplasm of thyroid gland. MEASUREMENTS: The thyroid is surgically absent. Thyroid bed is clear Bilateral neck scanned, no evidence of lymphadenopathy. IMPRESSION: 1. Normal post thyroidectomy thyroid scan
== END | disposition home or self-care (01) ==
LOC: RADUSWWP 12:02
PROVIDERS: ATTEND Internal Medicine Endocrinology, Diabetes & Metabolism
DX: C73 Malignant neoplasm of thyroid gland (principal)
CPT/HCPCS: 76536; 84432; 84443; 86800

== ENCOUNTER → 2021-07-28 | Outpatient (CLI) | payer BC ==
--- NOTE | 2021-07-28 12:58 | BD ---
EXAMINATION TYPE: Axial Bone Density DATE OF EXAM: 07/28/2021 COMPARISON: 06/20/2019 CLINICAL HISTORY: Breast cancer Height: 66.5 IN Weight: 142 LBS FRAX RISK QUESTIONS: History of Fracture in Adulthood: LT FIBULA AGE 52 RISK FACTORS HISTORY OF: Active: YES Postmenopausal woman: AGE 54 MEDICATIONS: Thyroid Medications: YES Which medication: TIROSINT How Long: SINCE 2016 Additional Medications: CALCIUM, VIT D, TIROSINT, MULTI VIT, ARIMIDEX, Additional History: BREAST CANCER WITH RADIATION IN 2016 EXAM MEASUREMENTS: Bone mineral densitometry was performed using the [employer] System. Bone mineral density as measured about the Lumbar spine is: ----- L1-L4(G/cm2): 1.262 T Score Values are as follows: ----- L2: 0.4 ----- L3: 0.6 ----- L4: 1.3 ----- L1-L4: 0.7 Bone mineral density has: Decreased -5.7% since study of: 06/20/2019 Bone mineral density about the R hip (g/cm2): 0.975 Bone mineral density about the L hip (g/cm2): 0.985 T Score values are as follows: -----R Neck: -0.5 -----L Neck: -0.4 -----R Total: 0.2 -----L Total: 0.1 Bone mineral density has: Decreased -4.9% since study of: 06/20/2019 IMPRESSION: Normal bone mineral density. NOTE: T-SCORE=SD OF THE YOUNG ADULT MEAN.
== END | disposition home or self-care (01) ==
LOC: RADBDWWP 10:30
PROVIDERS: ATTEND Internal Medicine Hematology & Oncology
DX: C50.812 Malignant neoplasm of overlapping sites of left female breast (principal)
CPT/HCPCS: 77080

== ENCOUNTER → 2021-09-09 | Outpatient (CLI) | payer BC | END | disposition home or self-care (01) | LOC: LABWHC1 10:41 | PROVIDERS: ATTEND Internal Medicine Endocrinology, Diabetes & Metabolism | DX: C73 Malignant neoplasm of thyroid gland (principal) | CPT/HCPCS: 36415; 84432; 84443; 86800 ==

== ENCOUNTER → 2021-12-22 | Outpatient (CLI) | payer BC ==
--- NOTE | 2021-12-22 11:37 | US ---
EXAMINATION TYPE: US thyroid st tissue head/neck DATE OF EXAM: 12/22/2021 COMPARISON: US CLINICAL HISTORY: C73 MALIGNANT NEOPLASM OF THYROID GLAND. Total thyroidectomy 2016 per patient. GLAND SIZE: Right Lobe and Left Lobe surgically removed, however, residual echogenic tissue is still noted right mid thyroid bed as previously was seen = 2.0 x 0.8 x 0.4cm and may be residual tissue vs. scar tissue . Bilateral neck scanned: no evidence of lymphadenopathy. IMPRESSION: Total thyroidectomy change however residual echogenic tissue remains within the right thyroid bed.
== END | disposition home or self-care (01) ==
LOC: RADUSWWP 10:25
PROVIDERS: ATTEND Internal Medicine Endocrinology, Diabetes & Metabolism
DX: C73 Malignant neoplasm of thyroid gland (principal)
CPT/HCPCS: 76536; 84432; 84443; 86800

== ENCOUNTER → 2022-07-20 | Outpatient (CLI) | payer BC ==
[2022-07-20 18:15] LABS: T4, Free (Free Thyroxine) 1.58 ng/dL (0.800-1.800)
== END | disposition home or self-care (01) ==
LOC: LABWHC1 12:18
PROVIDERS: ATTEND Internal Medicine Endocrinology, Diabetes & Metabolism
DX: C73 Malignant neoplasm of thyroid gland (principal)
CPT/HCPCS: 36415; 84432; 84439; 84443; 86800

== ENCOUNTER → 2023-01-25 | Outpatient (CLI) | payer BC ==
--- NOTE | 2023-01-25 10:35 | US ---
EXAMINATION TYPE: US thyroid st tissue head/neck DATE OF EXAM: 01/25/2023 COMPARISON: NONE CLINICAL INDICATION: Female, 62 years old with history of C73 MALIGNANT NEOPLASM OF THYROID GLAND; Th yroid removed 2015 hx of CA tissue seen on previous patient had scan and it was normal tissue per pat ient. GLAND SIZE: Right Lobe: Surgically absent NODULES RIGHT: Tissue visualized as seen on previous 1.1 x .5 x .6 cm. LEFT: # of nodules measured on left: 0 ISTHMUS: # of nodules measured in the isthmus: 0 Bilateral neck scanned, no evidence of lymphadenopathy. IMPRESSION: Postoperative changes with residual tissue right thyroid bed. No solid or cystic nodule seen.
== END | disposition home or self-care (01) ==
LOC: RADUSWWP 09:36
PROVIDERS: ATTEND Internal Medicine Endocrinology, Diabetes & Metabolism
DX: C73 Malignant neoplasm of thyroid gland (principal); Z98.890 Other specified postprocedural states
CPT/HCPCS: 76536; 84432; 84443; 86800

== ENCOUNTER → 2023-07-19 | Outpatient (CLI) | payer BC | END | disposition home or self-care (01) | LOC: LABWHC1 10:17 | PROVIDERS: ATTEND Internal Medicine Endocrinology, Diabetes & Metabolism | DX: C73 Malignant neoplasm of thyroid gland (principal) | CPT/HCPCS: 36415; 84432; 84443; 86800 ==

== ENCOUNTER → 2023-07-19 | Outpatient (CLI) | payer BC ==
--- NOTE | 2023-07-19 11:28 | BD ---
EXAMINATION TYPE: Axial Bone Density DATE OF EXAM: 07/19/2023 CLINICAL HISTORY: 63 years old Female. ICD-10 CODE: C50.812 MALIGNANT NEOPLASM OF THYROID GLAND Height: 66 Weight: 142 FRAX RISK QUESTIONS: History of Fracture in Adulthood: yes RISK FACTORS HISTORY OF: hx of lt leg fx at 52 yrs old Family History of Osteoporosis: yes, mother and sister. Postmenopausal woman: yes, 54 yrs Hyperparathyroidism: no Adrenal Insufficiency: no MEDICATIONS: Thyroid Medications: yes, for about 10 yrs now Additional Medications: hx of radiation, 2016, calcium, thyroid meds, vitamin, arimidex, tomoxifen in the past, reflux meds, statin for cholesterol, vit d and calcium Additional History: hx of breast cancer, thyroid, cholesterol, reflux, EXAM MEASUREMENTS: Bone mineral densitometry was performed using the [employer] System. Bone mineral density as measured about the Lumbar spine is: ----- L1-L4(G/cm2): 1.240 T Score Values are as follows: ----- L1: 0.1 ----- L2: 0.2 ----- L3: 0.7 ----- L4: 0.7 ----- L1-L4: 0.5 Z Score Values are as follows: ----- L1: 1.7 ----- L2: 1.8 ----- L3: 2.3 ----- L4: 2.3 ----- L1-L4: 2.1 Bone mineral density has: Decreased -1.7% since study of: 07.28.2021 Bone mineral density about the R hip (g/cm2): 1.026 Bone mineral density about the L hip (g/cm2): 1.020 T Score values are as follows: -----R Neck: -0.5 -----L Neck: -0.6 -----R Total: 0.1 -----L Total: 0.1 Z Score values are as follows: -----R Neck: 1.0 -----L Neck: 0.9 -----R Total: 1.4 -----L Total: 1.3 Bone mineral density has: Decreased -0.1% since study of: 07.28.2021 FRAX%s: The graph provided illustrates a 11.7% chance for a major osteoporotic fx and a 0.6% chance f or the hips probability for fx in 10 years time. IMPRESSION: Normal (Values between +1 and -1 indicate normal bone mass). Consider repeating this study in 5 year s or sooner if there is some new clinical indication. NOTE: T-SCORE=SD OF THE YOUNG ADULT MEAN.
== END | disposition home or self-care (01) ==
LOC: RADBDWWP 10:14
PROVIDERS: ATTEND Internal Medicine Hematology & Oncology
DX: C50.812 Malignant neoplasm of overlapping sites of left female breast (principal); C73 Malignant neoplasm of thyroid gland; Z78.0 Asymptomatic menopausal state
CPT/HCPCS: 77080

== ENCOUNTER → 2024-01-18 | Outpatient (CLI) | payer MEDICARE ==
--- NOTE | 2024-01-18 19:26 | US ---
EXAMINATION TYPE: US thyroid st tissue head/neck DATE OF EXAM: 01/18/2024 COMPARISON: Multiple priors most recent 03/18/2021 CLINICAL INDICATION: Female, 63 years old with history of C73 MALIGNANT NEOPLASM OF THYROID GLAND; re moved GLAND SIZE: Right Lobe: Surgically absent Left Lobe: Surgically absent Isthmus Thickness: Surgically absent NODULES RIGHT: # of nodules measured on right: 0 LEFT: # of nodules measured on left: 0 ISTHMUS: # of nodules measured in the isthmus: 0 Bilateral neck scanned, no evidence of lymphadenopathy. IMPRESSION: Surgically absent thyroid gland No evidence for mass or lymphadenopathy.
== END | disposition home or self-care (01) ==
LOC: RADUSWWP 10:04
PROVIDERS: ATTEND Internal Medicine Endocrinology, Diabetes & Metabolism
DX: C73 Malignant neoplasm of thyroid gland (principal)
CPT/HCPCS: 36415; 76536; 84432; 84443; 86800

== ENCOUNTER → 2025-01-17 | Outpatient (CLI) | payer MEDICARE ==
[2025-01-17 18:26] LABS: T4, Free (Free Thyroxine) 1.57 ng/dL (0.80-1.80)
--- NOTE | 2025-01-18 16:10 | US ---
EXAMINATION TYPE: US thyroid st tissue head/neck DATE OF EXAM: 01/17/2025 COMPARISON: NONE CLINICAL INDICATION: Female, 64 years old with history of Z85.850 PERSONAL HISTORY OF MALIGNANT NEOPL ASM OF; Thyroid removed 2015 TECHNIQUE: Grayscale and color Doppler imaging of the thyroid gland. FINDINGS: GLAND SIZE: Right Lobe: Surgically absent Left Lobe: Surgically absent Isthmus Thickness: Surgically absent NODULES RIGHT: # of nodules measured on right: 0 LEFT: # of nodules measured on left: 0 foci. ISTHMUS: # of nodules measured in the isthmus: 0 Bilateral neck scanned, no evidence of lymphadenopathy. IMPRESSION: No suspicious recurrent masses within the thyroid bed [facility], , 01/18/2025 4:07 PM
== END | disposition home or self-care (01) ==
LOC: RADUSWWP 13:11
PROVIDERS: ATTEND Family Medicine
DX: Z85.850 Personal history of malignant neoplasm of thyroid (principal)
CPT/HCPCS: 76536; 84432; 84439; 84443; 86800